=== PATIENT | male | born 1955 | race African-American/Black ===

== ENCOUNTER 2017-07-14 16:18 | Emergency (ER) | payer MEDICAID ==
[~2017-07-14] VITALS: Ht 177.8 cm; Wt 81.6 kg
--- NOTE | 2017-07-14 17:37 | NUR ---
Patient discharged to home in stable conditon. Written and verbal after care instructions given. Patient verbalizes understanding of instructions.
== END 2017-07-14 17:44 | disposition home or self-care (01) ==
LOC: ER 16:20
DX: N48.1 Balanitis (principal)
CPT/HCPCS: A4663

== ENCOUNTER 2017-10-20 09:32 | Emergency (ER) | payer MEDICAID ==
[~2017-10-20] VITALS: Ht 177.8 cm; Wt 83.9 kg
--- NOTE | 2017-10-20 09:57 | NUR ---
Dr. Mccall here to see pt for MSE.
[2017-10-20] MEDS ORDERED: IBUPROFEN 600 MG TABLET PO ONE (10:15)
[2017-10-20] MEDS ORDERED: OXYCODONE/APAP 5-325 MG TABLET PO ONE (10:15)
[2017-10-20] MEDS ORDERED: CYCLOBENZAPRINE HCL 10 MG TABLET PO ONE (10:15)
[2017-10-20] MEDS ORDERED: CYCLOBENZAPRINE HCL 10 MG TABLET ONE (10:21)
[2017-10-20] MEDS ORDERED: IBUPROFEN 600 MG TABLET ONE (10:22)
[2017-10-20] MEDS ORDERED: OXYCODONE/APAP 5-325 MG TABLET ONE (10:22)
--- NOTE | 2017-10-20 10:25 | NUR ---
Patient discharged to home in stable conditon. Written and verbal after care instructions given. Patient verbalizes understanding of instructions.
== END 2017-10-20 10:25 | disposition home or self-care (01) ==
LOC: ER 09:32
DX: M54.5 Low back pain (principal)
CPT/HCPCS: A4663